=== PATIENT | female | born 1955 | race American Indian/Alaskan Native ===

== ENCOUNTER 2017-10-03 16:30 | Inpatient (IN) | payer OTHER ==
[~2017-10-03] VITALS: Ht 157.5 cm; Wt 88.2 kg
[~2017-10-03 16:30] MED LIST: AMLODIPINE BESY10 MG PO; ASPIRIN EC81 MG PO; ATIVAN1 MG PO; CLONIDINE HCL0.1 MG PO; COLACE100 MG PO; COZAAR50 MG PO; DUCODYL5 MG PO; FENOFIBRATE160 MG PO; GLIPIZIDE XL5 MG PO; LASIX40 MG PO; MAGNESIUM400 MG PO; METFORMIN HCL500 MG PO; METOPROLOL SUCC25 MG PO; MORPHINE SULFAT15 M1 PO; MULTI VITAMIN1 EACH PO; NORCO 10-325 T1 EACH PO; NORCO 5-325 TA1 EACH PO; PROMETHAZINE HC25 M1 PO; QUININE SULFAT324 MG PO; SIMVASTATIN20 MG PO; VITAMIN D250000 UNIT; VITAMIN D5000 UNIT PO; WELCHOL625 MG PO; ZOFRAN ODT8 MG PO; ZOVIRAX400 MG PO; ZYLOPRIM300 MG PO
[2017-10-03] MEDS ORDERED: REVLIMID10 MG PO ×2 (16:41→16:42)
--- NOTE | 2017-10-03 21:30 | NUR ---
BEDSIDE SWALLOW SCREENING PERFORMED. PATIENT DID NOT TOLERATE SWALLOWING WATER. COUGHING AND WET BREATH SOUNDS WERE HEARD DIRECTLY AFTER SWALLOWING. PATIENT STATES THAT SHE FELT LIKE SHE WAS ABLE TO SWALLOW. IT APPEARED TO TAKE THE PATIENT MORE THAN 5 SECONDS TO SWALLOW. HOB ONLY ABLE TO BE ELEVATED TO 45 DEGREES DUE TO DISCOMFORT FOR THE PATIENT. DISCUSSED FINDINGS WITH DR. JAVIER. ALL PO MEDICATIONS ARE TO BE HELD UNTIL SPEECH THERAPY CAN EVALUATE THE PATIENT. NEW ORDERS INPUT. PATIENT IS NOW NPO. FAXED REQUEST TO UPDATE THE eMAR TO THE TELE-PHARMACY.
--- NOTE | 2017-10-03 22:00 | NUR ---
PATIENT DENIES PAIN AT THIS TIME. CALL LIGHT IN REACH. FAMILY AT BEDSIDE. IVF INFUSING, PORT SITE WNL.
--- NOTE | 2017-10-03 23:54 | NUR ---
REPOSITIONED PATIENT TO LEFT SIDE. PATIENT TOLERATED WELL. PATIENT REQUESTED TO TAKE THE 1L NC OFF. O2 SAT 99%. REMOVED O2 AND WILL CONTINUE TO MONITOR O2 SAT. PATIENT DENIES PAIN AT THIS TIME. FAMILY MEMBERS PROVIDED WITH BEDDING. CALL LIGHT IN REACH.
--- NOTE | 2017-10-04 00:30 | NUR ---
PATIENT CALLED TO REPORT 10/10 PAIN IN HER HEAD. PRN MORPHINE PROVIDED PER ORDERS. PATIENT ASSESSMENT COMPLETED. PATIENT IS DROWSY BUT ANSWERS QUESTIONS APPROPRIATELY. FACE IS SWOLLEN, MORE SO ON THE RIGHT SIDE. PATIENT SPEAKS OUT OF LEFT SIDE OF HER MOUTH. SPEECH IS DIFFICULT TO UNDERSTAND DUE TO SWELLING AND SORES IN THE MOUTH. SORE/BLISTERS ON RIGHT SIDE OF NECK AND CHEST ARE WEEPING, WITH FOUL ORDOR, AND SCABS PRESENT. LUNG SOUNDS ARE DIMINISHED BUT CLEAR IN UPPER LOWBES BILATERALLY. WOUNDS ON BOTH FOREARMS/ELBOWS ARE COVERED WITH ABD PADS AND NO NEW DRAINAGE IS NOTED. PATIENT DENIES NAUSEA, ABD IS MILDLY DISTENDED, TENDER, AND HYPOACTIVE BOWEL TONES. PATIENT HAS VERY DRY TOUGH SKINS ON HER LOWER EXTREMITIES WITH 2+ PITTING EDEMA. LEGS ARE TENDER. [facility] IS IN PLACE, AND DRAINING STRAW COLORS URINE WITHOUT SEDIMENT. IVF INFUSING INTO RIGHT SIDED PORT, SITE WNL. PATIENT DENIES FURTHER NEEDS, CALL LIGHT IN REACH. FAMILY AT BEDSIDE.
--- NOTE | 2017-10-04 02:31 | NUR ---
VITAL SIGNS COLECTED, WNL. PATIENT CONTINUES TO BE 96% O2 ON ROOM AIR. PATIENT REPORTS PAIN IS WELL CONTROLLED. PATIENT IS DROWSEY BUT ORIENTED TO HERSELF AND HER SURROUNDINGS. PATIENT IS REQUESTING NOT TO BE TURNED ONTO HER SIDE AT THIS TIME, HIPS ARE FLOATED WITH PILLOWS ON BOTH SIDES. PATIENT DENIES NEEDS AT THIS TIME. CALL LIGHT WITHIN REACH.
--- NOTE | 2017-10-04 05:17 | NUR ---
ARRIVED TO FLOOR AROUND 1800 LAST NIGHT. FAMILY AT BEDSIDE. PATIENT REFUSING NC 02, SAT >90% ON RA. NPO DUE TO FAILED BEDSIDE SWALLOW EVAL. IV PAIN MEDS X1 NO NAUSEA. +2 EDEMA IN ARMS & LEGS. RADIATION KINSEY ON NECK/CHEST/FOREARMS. [facility] IN PLACE. IVF INFUSING VIA LEFT SIDED PORT. PATIENT HAS NOT BEEN OUT OF BED.
--- NOTE | 2017-10-04 05:54 | NUR ---
MORNING LABS WERE DRAWN. VS COMPLETE, WNL. PATIENT REQUESTED PRN PAIN MEDS FOR HEADACHE RATED 8/10, IV PAIN MEDS PROVIDED. PATIENT REQUESTED NOT TO BE TURNED AT THIS TIME. HIPS ARE FLOATED. NO FURTHER NEEDS AT THIS TIME.
--- NOTE | 2017-10-04 06:50 | NUR ---
PATIENT HAD LOW URINE OUTPUT THIS MORNING. CALLED MD. NEW ORDERS OBTAINED AND ENTERED. VERIFIED USING READ BACK METHOD.
--- NOTE | 2017-10-04 07:15 | NUR ---
BEDSIDE REPORT RECEIVED FROM HOA BERNARD. PT AWAKE, LYING IN BED, FLOATING ON TWO PILLOWS. PT HAS IVF AND ANTIBIOTIC INFUSING AT 425 ML/HR AND 25 ML/HR. [employer] TECH IN ROOM AT THIS TIME. PT HAS SIGNIFICANT SKIN BREAKDOWN ON NECK, CHEST. PT'S DAUGHTER IN ROOM. CALL LIGHT IN REACH. WILL CONTINUE TO MONITOR.
--- NOTE | 2017-10-04 07:25 | EKG ---
[facility] [address] [place] [address] Signed Wide QRS rhythm Right bundle branch block Possible Lateral infarct , age undetermined Possible Inferior infarct , age undetermined Abnormal ECG When compared with ECG of 29-NOV-2016 14:50, Wide QRS rhythm has replaced Sinus rhythm Vent. rate has increased BY 46 BPM Confirmed by FERNANDO JAVIER MD ([id number]) on 10/04/2017 7:25:24 AM Electronically Signed By: FERNANDO JAVIER MD 10/04/17 0725 PATIENT NAME: NORA TUCKER Electrocardiogram DATE OF : 53 PHYSICIAN: FERNANDO JAVIER MD REPORT #: [id number] REPORT IS CONFIDENTIAL AND NOT TO BE RELEASED WITHOUT AUTHORIZATION
--- NOTE | 2017-10-04 07:34 | NUR ---
US TECH REPORTS NO DVT IN BILATERAL LEGS AT THIS TIME. OFFICAL RADIOLOGY REPORT TO FOLLOW.
--- NOTE | 2017-10-04 08:30 | NUR ---
DR. JAVIER IN PT ROOM ASSESSING PT, DISCUSSING PLAN OF CARE, HOSPICE CONSULT WITH PT AND FAMILY. PT REPOSITIONED WITH PILLOWS UNDER BOTH HIPS. SKIN BREAKDOWN ON COCCYX VISUALIZED, BARRIER CREAM APPLIED. CHUX CHANGED, MODERATE AMOUNT OF SEROUS FLUID NOTED ON CHUX ON NECK AND BEHIND. PT MOUTH SWABBED, WARM WASH CLOTH PROVIDED. PT HAS CALL LIGHT IN REACH.
--- NOTE | 2017-10-04 08:32 | NUR ---
PT REPORTS PAIN OF 5/10 AT THIS TIME, TOLERABLE, PT GOAL IS 7-8/10 PER PT. PT INSTRUCTED TO USE CALL LIGHT FOR PRN PAIN MEDICATION. PT HAS CALL LIGHT NEXT TO HER.
--- NOTE | 2017-10-04 09:22 | NUR ---
FULL BED BATH DONE WITH [facility] CATH CARE DONE. SKIN AND ORAL CARE DONE. LINENS CHANGED. PATIENT HAS A PILLOW UNDER EACH HIP. CALL BUTTON IN REACH. NO OTHER NEEDS AT THIS TIME.
--- NOTE | 2017-10-04 10:18 | NUR ---
PATIENT RESTING IN BED FAMILY IN ROOM. PATIENT WAS 87% ON RA. 1L NC ON PATIENT OXYGEN LEVEL UP TO 100% ON 1L NC. RN NOTIFIED. RN IN ROOM TO ASESS PATIENT. NO OTHER NEEDS AT THIS TIME.
--- NOTE | 2017-10-04 10:30 | NUR ---
PT ASSESSMENT COMPLETE. PT LUNGS COARSE, DIMINISHED THROUGHOUT. PT HAS SUCTION IN REACH, PRODUCTIVE, WET COUGH PRESENT. PT HAS IVF INFUSING. CONTINUES TO HAVE MODERATE EDEMA UPPER EXTREMITIES BILATERALLY, MODERATE EDEMA LOWER EXTREMITIES BILATERALLY. FAINT PULSE LOWER EXTRMITIES BILATERALLY. SKIN IS DUSKY, SCALING, FRAGILE. SEROUS DRAINAGE NOTED FROM RADIATION BURN ON NECK, DRAINAGE FROM LEFT AND RIGHT ARMS. PT COCCYX EXCORIATED, SEROUS DRAINAGE ON CHUX. PT HAS CALL LIGHT IN REACH. CONTINUES TO RATE PAIN 9/10, HEADACHE. 4MG PRN IV MORPHINE WAS ADMINISTERED.
--- NOTE | 2017-10-04 11:31 | NUR ---
ADMINISTERED 4MG IV MORPHINE PRN FOR 10/10 REPORTED HEADACHE PAIN. PT LYING IN BED, FAMILY IN ROOM. BROUGHT FAMILY BEVERAGES. BANDAGES ON PT'S ARM REPLACED, DRESSINGS DRY, MINIMAL SEROUS DRAINAGE NOTED. PT HAS CALL LIGHT IN REACH.
--- NOTE | 2017-10-04 12:19 | NUR ---
REASSESSED PT PAIN, PT STATES HEADACHE IS 7/10, "GOING DOWN". IVF AND IV ZOSYN INFUSING INTO PORT. PT RESTING IN BED, FAMILY AT BEDSIDE. CALL LIGHT IN REACH.
--- NOTE | 2017-10-04 13:30 | NUR ---
ST EVALUATED. OKAY FOR MOIST AND THIN LIQUIDS FOR COMFORT. FAMILY AT BEDSIDE TO ASSIST WITH FEEDING. HOB ELEVATED. TALKED TO DR. JAVIER IN REGARDS TO PAIN MANAGMENT. ADDED FENTYL PATCH PLACED TO PAIN REGIMENT. FAMILY UPDATED.
--- NOTE | 2017-10-04 13:50 | NUR ---
PATIENT RESTING IN BED WITH EYES CLOSED. FAMILY IN ROOM. REPOSITIONED PATIENT ONTO LEFT SIDE.NO OTHER NEEDS AT THIS TIME.
--- NOTE | 2017-10-04 13:59 | NUR ---
PT STRUGGLING TO SPEAK, SHE RECOGNIZED ME. SAID HELJODEE, DIFFICULT TO SWALLOW. I ASKED HER ABOUT PAIN-SHE SAID A "7". HER SON MENTIONED HE THOUGHT IT WAS TIME FOR MORE PAIN MEDS. I TOLD THEM I WOULD CHECK WITH RN.. SHE WAS JUST PUTTING MED ORDER IN. PT ASKED ME TO PRAY FOR HER. HOA BRIDGES MENTIONED THAT HER IS IN SOMEWHAT OF DENIAL. HE WAS NOT PRESENT , BUT OTHER FAMILY WAS BY HER SIDE. I WILL CONTINUE TO FOLLOW NEEDED
--- NOTE | 2017-10-04 14:40 | NUR ---
ADMINISTERED FENTANYL PATCH TO PT FOR 8/10 REPORTED HEADACHE PAIN. PT LYING IN BED. FACIAL EDEMA AND ARMS SIGNIFICANTLY INCREASED FROM THIS MORNING. PT HAS IVF INFUSING AT 125, WILL CONTINUE TO MONITOR. CALL LIGHT IN REACH, FAMILY IN ROOM.
--- NOTE | 2017-10-04 15:23 | NUR ---
PHONE CALLED DR. JAVIER TO NOTIFY OF FACIAL EDEMA, EDEMA BILATERALLY UPPER EXTREMITIES. DR. JAVIER VERBAL ORDER TO SLOW FLUIDS TO 50 ML/HR AT THIS TIME.
--- NOTE | 2017-10-04 15:50 | NUR ---
RAPID RESPONSE CALLED IN PT ROOM. PT WAS REPOSITIONED TO RIGHT SIDE. RIGHT LOBES COURSE THROUGHOUT. PT ON 1L BY NC. PT BECAME TACHYCARDIC, THEN NON RESPONSIVE. PT REPOSITIONED BY RT AND RNS TO SUPPORT AIRWAY. PT NOT OPENING EYES, TAKING SHALLOW SPONTANEOUS BREATHS OCCASIONALLY. DR. JAVIER IN TO ASSESS PT. PT FAMILY AT BEDSIDE. FAMILY UPDATED BY DR. JAVIER ON CONDITION, ENCOURAGED TO CALL OTHER FAMILY MEMBERS, PT'S . PT POSITIONED FOR COMFORT.
== END 2017-10-04 16:10 | disposition still patient (30) | DRG 312 ==
LOC: ED 16:30 → MS 19:04
PROVIDERS: ADMIT Internal Medicine
DX: R55 Syncope and collapse (principal); Z51.5 Encounter for palliative care; C85.90 Non-Hodgkin lymphoma, unspecified, unspecified site; R46.0 Very low level of personal hygiene; R53.81 Other malaise; Z66 Do not resuscitate; I10 Essential (primary) hypertension; Z86.73 Personal history of transient ischemic attack (TIA), and cerebral infarction without residual deficits; R62.7 Adult failure to thrive
CPT/HCPCS: 36415; 51702; 71010; 80048; 80053; 81001; 83605; 83735; 84100; 85025; 92610; 93005; 93010; 93970; 96361; 96365; 96375; 99285; J2270; J2405; J2543; J7030

== ENCOUNTER 2017-10-04 16:11 | Inpatient (IN) | payer OTHER ==
[~2017-10-04] VITALS: Ht 157.5 cm; Wt 88.2 kg
[~2017-10-04 16:11] MED LIST changes: +REVLIMID10 MG PO
--- NOTE | 2017-10-04 17:30 | NUR ---
patient currently resting with hob slightly elevated. shallow breathing. apnic at times but eyes closed and comfortable. family ( 10 people) at bedside. family asked if they needed anything.comfort cart ordered. updated family about calling if needing anything and calling if they feel that the patient is not comfortable. all in agreement that patient currently looks comfortable. pastor huang updated as well as dr. erwin.
--- NOTE | 2017-10-04 18:09 | NUR ---
WHILE PRESENT ATTENDING TO ANOTHER PT, STAFF ASKED ME TO CHECK ON PT AND FAMILY. PT WAS FADING AND FAMILY BEGAN TO GATHER. HER SEVERO HAD GONE HOME AND WAS NOT IN CELL SERVICE, BUT FAMILY WAS ABLE TO MAKE CONTACT WITH HIM TO RETURN. MANY OF THOSE PRESENT WERE KIDS THAT NEEDED A PARENT AND SHE OPENED HER HOME AND HEART TO THEM. THEY EACH BEGAN TO TELL OF HOW SHE TOOK THEM IN AND FOR MOST WAS THE MOTHER AND FATHER FIGURE. SHE TAUGHT THEM HOW TO MONET, FISH AND ALWAYS HAD ROOM FOR ONE MORE. THEY BEGAN TO TELL THEIR FAVORITE STORIES-LAUGHTER BEGAN TO FILL THE RM. I VOICED A PRAYER FOR COMFORT AND MERCY, SHE STRUGGLES FOR EACH BREATH. I PLACED A SMALL PASSAGE QUILT ON HER AND WILL BE AVAILABLE NEEDED. GOD BLESS HER AND HER FAMILY.
--- NOTE | 2017-10-04 18:34 | NUR ---
PT CONTINUES TO HAVE SHALLOW BREATHING AT END OF SHIFT. MULTIPLE FAMILY MEMBERS PRESENT IN ROOM. PT CONTINUES TO BE NON-RESPONSIVE TO STIMULI. OXYGEN APPLIED BY NASAL CANNULA AT 1L. PT IVF STOPPED AT THIS TIME. FAMILY GIVEN CARE CART AND PERIODICALLY CHECKED ON FOR ANY NEEDS. PT APPEARS TO BE IN A COMFORTABLE POSITION, HEAD IS POSITIONED FOR AIRWAY MAINTENANCE.
--- NOTE | 2017-10-04 18:37 | NUR ---
pastor huang to room to visit with patients family. no other needs from family at this time.
--- NOTE | 2017-10-04 18:45 | NUR ---
CHECKED IN WITH PT AND FAMILY. OFFERED TO REPOSITION PT FOR COMFORT IF DESIRED BY FAMILY. PT CONTINUES TO BE UNRESPONSIVE. PT IS BREATHING. BREATHING APPEARS LABORED, DEEP. PT ON 1L O2 BY NC. PT FAMILY REFUSES PRN MORPHINE. PT HAS FENTANYL PATCH IN PLACE. INFORMED FAMILY THAT MORPHINE IS AVAILABE DESIRED, TO USE CALL LIGHT.
--- NOTE | 2017-10-04 19:20 | NUR ---
SHIFT REPORT RECIEVED. PATIENT RESTING IN BED. EYES CLOSED. RR 18. FAMILY AT BEDSIDE. MORE CHAIRS PROVIDED. FAMILY DENIES FURTHER NEEDS AT THIS TIME. HOA MCPHERSON PROVIDED EDUCATION ON AVAILABLE MEDICATIONS. THE PATIENTS DAUGHTER AGREES TO CALL IF THE PATIENT APPEARS UNCOMFORTABLE.
--- NOTE | 2017-10-04 23:20 | NUR ---
hospice cart refilled with snacks from the kitchen
--- NOTE | 2017-10-04 23:38 | NUR ---
PATIENT RESTING. EYES CLOSED. 1L NC IN PLACE. RR 20. BREATHING SHALLOW. PATIENT FAMILY REPORTS THAT SHE LOOKS COMFORTABLE AND DENIES THE NEED FOR PRN MEDICATIONS AT THIS TIME. DENIES ANY OTHER NEEDS. CALL LIGHT IN REACH.
--- NOTE | 2017-10-05 00:29 | NUR ---
PATIENT IS RESTING IN BED. EYES CLOSED. APPEARS COMFORTABLE. FAMILY DENIES NEEDS AT THIS TIME.
--- NOTE | 2017-10-05 03:40 | NUR ---
DISCUSSED CARE OPTIONS WITH PATIENT FAMILY. EDUCATED THEM ABOUT THE FENTANLY PATCH THAT IS IN PLACE. PATIENT'S ASKED MANY QUESTIONS ABOUT THE USE OF MORPHINE, PATIENT'S URINE OUTPUT, AND THE EDEMA. ALL QUESTIONS WERE ANSWERED. FAMILY AGREED TO PATIENT RECIEVING MORPHINE AT THIS TIME. PRN MORPHINE ADMINISTERED PER ORDER. PATIENT OPENS HER EYES TO SOUND BUT IS NONVERBAL. BREATHING BECAME LESS LABORED AFTER PRN MORPHINE WAS ADMINISTERED. ENCOURAGED FAMILY TO ASK QUESTIONS. THEY DENY FURTHER NEEDS AT THIS TIME.
--- NOTE | 2017-10-05 04:41 | NUR ---
PATIENTS AND SONS STEPPED OUT OF THE ROOM. THE PATIENTS FEMALE FAMILY MEMBER AGREED TO THE PATIENT BEING REPOSITIONED. DIDIER CARE PERFORMED, NEW BEDDING APPLIED, AND PATIENT MOVED UP IN BED. PATIENT DID NOT TOLERATE TURNING WELL. PATIENT APPEARS COMFORTABLE ON HER BACK AT THIS TIME.
--- NOTE | 2017-10-05 06:52 | NUR ---
ORAL CARE PROVIDED. FAMILY DENIES NEED FOR PRN MORPHINE AT THIS TIME.
--- NOTE | 2017-10-05 08:51 | NUR ---
PT LYING SUPINE IN BED. FAMILY AT BEDSIDE. HEART EASILY HEARD ON AUSCULTATION. THREADY PEDAL PULSES. EDUCATED FAMILY ON IMPORTANCE OF TURNING PATIENT FOR SKIN CARE. WILL REPOSITION PATIENT AT 1000. LUNGS SOUND CLEAR. NO COMPLAINTS AT THIS TIME.
--- NOTE | 2017-10-05 10:10 | NUR ---
SLUBBER TENDER MEAGHAN WILL DO ALL PT CARE TODAY WILL STILL CHECK ON PT FREQUENTLY
--- NOTE | 2017-10-05 10:17 | NUR ---
PT TURNED TO RIGHT SIDE. MORPHINE GIVEN BY STUDENT NURSE AND INSTRUCTOR. PT ABLE TO OPEN EYES, BUT UNABLE TO RESPOND TO QUESTIONS. FAMILY AT BEDSIDE. [facility] HAS MINIMAL OUTPUT.
--- NOTE | 2017-10-05 10:44 | NUR ---
We turned and repositioned the patient onto her right side. Her breathing got heavier and her eyes indicated pain with a grimace. Family at bedside also noticed that the patient was in pain after being repositioned. Morphine was given after repositioning, diluted, through her port.
--- NOTE | 2017-10-05 12:07 | NUR ---
PT IS A LITTLE MORE ALERT THIS MORNING, AWARE OF MY PRESENCE. MORE FAMILY AROUND:NIECES, SIS IN LAW AND SEVERO. FAMILY ALL SEEM VERY CLOSE, GOOD THAT SO MANY HAVE BEEN BY. HAD PRAYER AND GOOD VISIT, WILL CONTINUE TO FOLLOW. I BELIEVE IN MIRACLES!
--- NOTE | 2017-10-05 13:45 | NUR ---
The charge nurse and I turned the patient with her right side propped up. The patient began breathing heavily indicating pain. We then gave morphine at 2mg per orders.
--- NOTE | 2017-10-05 13:52 | NUR ---
Before giving morphine at 1445 I asked the patient's family how they felt about her pain and if we should give 4mg instead of 2 mg. The family responded well and said that the patient is doing fine on 2 mg at this time.
--- NOTE | 2017-10-05 14:07 | NUR ---
MET PT'S SEVERO OUTSIDE HR RM. HE CONFIDED IN ME THAT HE STILL BELIEVES SHE COULD IMPROVE IF SHE COULD JUST GET SOME WATER AND NOURISHMENT. HE BELIEVES SHE CAN SWALLOW. HE SAYS "I KNOW THIS LADY, AND HAVE TAKEN CARE OF HER. NO ONE WILL LISTEN TO ME". I GET THE SENSE HE FEELS POWERLESS, AND ONLY HE BELIEVES SHE CAN SURVIVE. I TOLD HIM I STILL BELIEVE IN MIRACLES, AND THAT I WOULD PASS ON HIS FEELINGS TO THE DR. I DIDN'T GUARANTEE ANYTHING EXCEPT INFORMING THE DR. HE SEEMED TO APPRECIATE THIS. VISITED WITH HIM ALSO ABOUT THE ON-CALL PARAPLANNER IN MY ABSENCE. VISITED WITH FAMILY PRESENT, TALKED TO PT AND HAD PRAYER WITH HER-WHICH SHE ALWAYS WOULD HAVE ME DO. I PASSED ALONG TO HOA NELSON REGARDING SEVERO'S FEELINGS. SHE UNDERSTOOD AND WAS GOING TO LOOK IN PT'S CHART IF SHE HAS HAD A SWALLOW STUDY AND VISIT WITH DR. JAVIER. GOD ELGINSS
--- NOTE | 2017-10-05 14:53 | NUR ---
FIELD HANDYMAN MEAGHAN IS PROVIDING ALL CARE. PT IS RESTING SAFELY IN BED WITH CALL LIGHT IN REACH AND FAMILY IN ROOM
--- NOTE | 2017-10-05 15:27 | NUR ---
Patient tolerated a turn back onto her right side. She was able to help us turn her by using her left arm. The patient's neice reported that she was verbal but confused when a family member came in. According to this report the patient grabbed the family member's arm and asked 'what's wrong?'". The family members reasured her that everything was fine. The patient relaxed after family reasurrance.
--- NOTE | 2017-10-05 15:30 | NUR ---
REPORT RECEIVED FROM DAY RN.
--- NOTE | 2017-10-05 17:13 | NUR ---
PURPOSEFUL ROUNDING. FAMILY DENIES NEEDS AT THIS TIME. PT APPEARS COMFORTABLE.
--- NOTE | 2017-10-05 17:45 | NUR ---
WOOD ROUTER MEAGHAN IS PROVIDING ALL CARE. PT IS RESTING IN BED SAFELY WITH CALL LIGHT IN REACH AND FAMILY IN ROOM
--- NOTE | 2017-10-05 18:05 | NUR ---
PT GIVEN 2 MG IV MORPHINE PROPHYLAXIS FOR TURN. PT APPEARS COMFORTABLE, NO GRIMMACING OR MOANING. FAMILY AT BEDSIDE.
--- NOTE | 2017-10-05 18:26 | NUR ---
Throughout the day, the patient's respirations have decreased. They are now at 8. Her eyes were opened and tracking until around 1800 when we went in to reposition her and give pain medication; 2mg of Morphine IV. During the day she was able to assist with repositioning. When we repositioned her for the last time during shift, she did not assist or open her eyes. She was unresponsive. The family has been receptive and kind all day today. They seem to be doing well with the transition to palliative care. Family denies any questions.
--- NOTE | 2017-10-05 19:05 | NUR ---
PATIENT APPEARS TO BE COMFORTABLE. RR 8. FAMILY DENIES NEEDS AT THIS TIME. SHIFT REPORT RECIEVED.
--- NOTE | 2017-10-05 20:30 | NUR ---
CONTACTED DONOR LINE. PER KARLO CHART TO BE REVIEWED TO DETERMINE DONOR STATUS. DONOR LINE WILL CALL BACK.
--- NOTE | 2017-10-05 20:37 | NUR ---
FAMILY ALERTED STAFF TO PATIENT NOT BREATHING. CORE WORKER LISTENED FOR HEART SOUNDS FOR 1 MIN. NO HEART SOUNDS OR BREATH SOUNDS NOTED. HOSPITALIST NOTIFED. PASTORAL CARE ALERTED. SUPIVISOR ALERTED. DONOR LINE CONTACTED. FAMILY DENIES ANY FURTHER NEEDS. THEY ARE AWARE THAT EMPLOYEE OPERATIONS EXAMINER IS ON HIS WAY.
--- NOTE | 2017-10-05 21:00 | NUR ---
PASTOR BENNETT ON THE FLOOR TO SEE FAMILY
--- NOTE | 2017-10-05 21:40 | NUR ---
FAMILY REQUEST PATIENT BEDDING TO BE CHANGED. BEDDING AND GOWN WAS CHANGED. [facility] DC. PORT ACCESS REMOVED. ID BAND LEFT WITH PATIENT. FAMILY DENIES FURTHER NEEDS AT THIS TIME.
--- NOTE | 2017-10-05 23:00 | NUR ---
PT DISCHARGED VIA HOME. ALL PERSONAL EFFECTS SENT HOMES WITH FAMILY. NO FURTHER NEEDS AT THIS TIME. PAPERWORK COMPLETED BY PASTOR BENNETT.
--- NOTE | 2017-10-05 23:04 | NUR ---
RAIL CAR OPERATOR WAS CALLED IN AFTER PT HAD . MUCH FAMILY WAS PRESENT AND DOING WELL. PT'S WAS NOT HERE SO HOUSING COURT JUDGE OF BODY WAS DELAYED UNTIL HAD ARRIVED. BODY WAS SENT TO [facility]. PTS FAMILY WAS PRAYED FOR BY RAIL CAR OPERATOR AT TIME OF VISIT.
== END 2017-10-05 23:00 | DRG 840 ==
LOC: MS 16:11
PROVIDERS: ADMIT Internal Medicine
DX: C85.90 Non-Hodgkin lymphoma, unspecified, unspecified site (principal); J96.00 Acute respiratory failure, unspecified whether with hypoxia or hypercapnia; Z86.73 Personal history of transient ischemic attack (TIA), and cerebral infarction without residual deficits; I10 Essential (primary) hypertension; Z66 Do not resuscitate; Z51.5 Encounter for palliative care; R62.7 Adult failure to thrive; R55 Syncope and collapse
CPT/HCPCS: J2270